=== PATIENT | male | born 1975 | race Caucasian/White ===

== ENCOUNTER → 2021-08-10 | Outpatient (CLI) | payer OTHER ==
[~2021-08-10] MED LIST: ALEVE220 MG PO; AMLODIPINE BESY10 MG PO; ANDROGEL5 GM TD; ASPIRIN325 OR; BUPROPION XL300 MG PO; CLONIDINE PO; CRESTOR20 MG PO; CYMBALTA60 MG PO; DEPO-TESTO100 MG/1 M; EFFIENT10 MG PO; FENTANYL PATCH75 MCG TP; IMDUR 60 MG TAB60 M1 PO; LIPITOR40 MG PO; LISINOPRIL40 MG PO; LOPRESSOR 12.12.5 MG PO; LOPRESSOR 50 MG50 M1 PO; LORTAB 7.5/5001 TA3 PO; LYRICA PO; LYRICA100 MG PO; LYRICA200 MG PO; METHADONE HCL5 MG PO; MOBIC15 MG PO; NAPROSYN375 MG PO; NICORETTE4 MG BC; PHENERGAN 25 MG25 MG PO; PHENERGAN25 MG RE; PROVIGIL 200 M200 M1 PO; TOPROL XL100 MG PO; XANAX 0.5 MG0.5 M1 PO
== END ==
LOC: SJCVCIMAG 07:09
PROVIDERS: ATTEND Internal Medicine
DX: I25.89 Other forms of chronic ischemic heart disease (principal); I25.10 Atherosclerotic heart disease of native coronary artery without angina pectoris; E78.5 Hyperlipidemia, unspecified; I10 Essential (primary) hypertension; G47.30 Sleep apnea, unspecified; J42 Unspecified chronic bronchitis; Z82.49 Family history of ischemic heart disease and other diseases of the circulatory system; Z87.891 Personal history of nicotine dependence; Z72.89 Other problems related to lifestyle; Z88.5 Allergy status to narcotic agent; Z88.0 Allergy status to penicillin; Z79.82 Long term (current) use of aspirin; Z79.899 Other long term (current) drug therapy